=== PATIENT | male | born 1950 | race Caucasian/White ===

== ENCOUNTER → 2024-05-20 10:13 | Outpatient (REF) | payer MEDICARE, OTHER, SELFPAY | LOC: DHSLP 10:13 | PROVIDERS: ATTENDING PHYSICIAN Internal Medicine Cardiovascular Disease; FAMILY PHYSICIAN Family Medicine | DX: G47.33 Obstructive sleep apnea (adult) (pediatric) (principal); R09.02 Hypoxemia | CPT/HCPCS: 95800 ==

== ENCOUNTER 2024-05-27 10:52 | Day surgery (SDC) | payer MEDICARE, OTHER, SELFPAY ==
[2024-05-18 13:20] VITALS: BMI 29.6
[2024-05-27] VITALS (9 sets, daily range): BP systolic 107–158; BP diastolic 76–98; BMI 29.6
[2024-05-27 14:05] LABS: ACT-LR - POC 292 Seconds (116-155)
[2024-05-27 14:24] LABS: ACT-LR - POC 302 Seconds (116-155)
[2024-05-27 14:45] LABS: ACT-LR - POC 364 Seconds (116-155)
[2024-05-27 15:22] LABS: ACT-LR - POC 237 Seconds (116-155)
--- NOTE | 2024-05-27 16:35 | ITS.CL.ABL ---
Makeup Artist - Ablation
Ablation
Procedure Report:
Primary Grievance And Appeals Specialist: Lior Burroughs MD
Procedure Date: 05/27/2024
Patient History:
Patient is a pleasant 73-year-old male with a past medical history significant for hypertension, hyperlipidemia, persistent atrial fibrillation, severe obstructive sleep apnea.
See H&P for complete details.
Indication:
Symptomatic persistent atrial fibrillation
Arrhythmia Specific History:
Prior Medical Therapies for Rate and Rhythm Control:
[ ] Beta-waldo
[ ] Calcium channel-waldo
[ ] Amiodarone
[ ] Dronederone
[ ] Sotalol
[ ] Flecainide
[ ] Dofetilide
X Options limited by bradycardia
[ ] Options limited by comorbid renal disease
Prior Procedural Therapies for AF/AFL:
X Cardioversion
[ ] Pulmonary Vein Isolation
[ ] Posterior Wall Isolation
[ ] Additional lines (Specify)
[ ] Surgical Richard-MAZE or PVI (Specify)
Procedure Performed:
X AF ablation procedure (13242) -- includes LA/CS pacing, trans-septal, 3D mapping, + ICE
[ ] +IV drug (42781)
[ ] +Other Arrhythmia (99631)
X +Other AF Line/ablation (74051) - posterior wall isolation (roof,floor, wall)
Risks and expected recovery has been explained in detail. Alternative options have been explored, and in a shared-decision making fashion we have decided that this was the most appropriate procedure.
Method
NPO status confirmed. Grounding pad applied. Defibrillator pads applied. Continuous surface ECG, pulse oximetry, and blood pressure were monitored. Procedure was performed under general anesthesia, with anesthesia services.
Both groins were clipped, prepped with Chloraprep, and draped in sterile fashion. Time out was called. Local anesthesia administered with bupivacaine. The right femoral vein was accessed for catheter placement, using ultrasound guidance,
micro-puncture needle/wire, and modified seldinger technique. 3 sheaths were placed. The following catheters were used:
[ ] Tacticath SE (D/F Curve) ablation catheter
X Viewflex 9Fr ICE catheter
X Inquiry decapolar 6Fr diagnostic catheter
[ ] CRD Hex 6Fr
[ ] Arctic Front Advance Cryoballoon ([ ]28mm[ ]23mm)
[ ] Achieve Advance mapping catheter ([ ]15mm[ ]20mm)
X FlexCath Contour 10 Fr with PulseSelect PFA Catheter
X Advisor HD Grid Mapping Catheter, SE
[ ] Acuson AcuNav 8 Fr ICE catheter
[ ]Other: [ ]
Intracardiac ultrasound (ICE) was carefully advanced into the right atrium to guide sheath placement over a J-wire, catheter placement, guide trans-septal puncture, identify potential complications, identify anatomic structures and ensure proper
contact between ablation catheter and tissue.
Heparin was given prior to trans-septal puncture. Heparin was given to achieve and maintain a target ACT of 300-400 seconds throughout the procedure.
Trans-septal access was performed under ICE guidance. The trans-septal puncture was performed with a SafeSept wire through a Brockenbrough needle assembly through the steerable sheath. The wire was visualized as it entered the LSPV and system
advanced under ICE guidance and fluoroscopy into the LA. The Brockenbrough needle assembly, SafeSept wire and sheath dilator were removed under negative pressure. LA pressure was measured and recorded.
ICE and 3D mapping was performed to identify relevant cardiac structures. A careful 3D map was created to assess for regions of low-voltage and abnormal electrogram signals using HD grid mapping catheter and PulseSelect catheter. Additional mapping
was performed as outlined below.
Prior to ablation, glycopyrrolate was provided. PulseSelect catheter was advanced over J-wire to the ostium of each vein. Pulmonary vein isolation was performed with ostial and antral lesions in a circumferential manner. Contact was visualized via
EAM, ICE, fluoroscopy, and EGM signals. Posterior wall isolation was performed by anchoring the J-wire within the pulmonary vein and placing the PulseSelect catheter in contact with the posterior wall as visualized by aforementioned methods.
Following completion of ablation lesions, sinus rhythm was restored with a 200J synchronized DCCV and a post-ablation voltage/activation map was performed in sinus rhythm. Entrance and exit block were confirmed for each vein and the posterior wall.
Catheter and sheath were removed from the left atrium and post-ablation intracardiac echo evaluation was consistent with pre-ablation with no changes and no pericardial effusion and there is no left atrial thrombus or left ventricle thrombus seen.
Electrophysiology study was performed. There were no inducible arrhythmias with programmed stimulation. Hemostasis was obtained with Vascade for each sheath and with manual pressure. Protamine was used for reversal.
Estimated Blood Loss
5 mL
Complications
None
Fluoroscopy: 2.6 minutes; 6.82 mGy; DAP 1.69
Baseline Intervals:
Rhythm: AF
QRS: 164 ms
QT: 446 ms
Post-Procedure Intervals:
NC: 244 ms
QRS: 148 ms
QT: 510 ms
QTc: 535 ms
A-A: 910 ms
R-R: 910 ms
AVWB: 450 ms
AVNERP: 600/370 ms
AERP: 600/250 ms
Recommendations
- Bedrest with straight-leg precautions as ordered
- Anticipate same day discharge if patient meeting clinical metrics
- Resume home medications as indicated
- Ok to resume anticoagulation tonight if patient and groin sites stable
- PPI daily for 30 days
- Plan for follow-up in office as scheduled
Adilson Snow DO
Clinical Cardiac [employer] Waistline Joiner
cc: Lior Burroughs MD; Ravi Mejía, DO
--- NOTE | 2024-05-27 16:58 | W.PN.UPDATE ---
Update Note
Progress Note Update
73 yo WM s/p PVI (same day). He denies cp, sob, dorota diet, EKG SR 1deg AVB, RBBB, R fem site VASCADE c/d/i. He will resume Eliquis at 10pm tonight. Activity restrictions reviewed. He will f/u Dr. Burroughs in 6-8 weeks. He is for d/c home after 620p if
groin stable and able to void.
== END 2024-05-27 18:20 | disposition home or self-care (01) ==
LOC: CATH 10:52
PROVIDERS: ATTENDING PHYSICIAN Internal Medicine Cardiovascular Disease; FAMILY PHYSICIAN Family Medicine; OTHER PHYSICIAN Internal Medicine Cardiovascular Disease
DX: I48.19 Other persistent atrial fibrillation (principal); E78.5 Hyperlipidemia, unspecified; I10 Essential (primary) hypertension; G47.33 Obstructive sleep apnea (adult) (pediatric); Z79.01 Long term (current) use of anticoagulants; Z79.899 Other long term (current) drug therapy; I44.0 Atrioventricular block, first degree; I45.10 Unspecified right bundle-branch block
CPT/HCPCS: C1732; C1894; C1769; C1759; C1733; C1766; 85347; 86900; 86901; 93005; 93656; 93657; C1760